=== PATIENT | male | born 1990 | race Caucasian/White ===

== ENCOUNTER 2020-06-24 13:22 | Emergency (ER) | payer BC, SELFPAY ==
--- NOTE | ~2020-06-24 | XR_ITS ---
EXAMINATION: XR ANKLE, RIGHT CLINICAL INFORMATION: Pain COMPARISON: None TECHNIQUE: AP, lateral, and mortise views of the right ankle. FINDINGS: The bones and soft tissues are normal. No fracture. Alignment is anatomic. Joint spaces are maintained. No joint effusion. XR/XR ankle RT min 3V IMPRESSION: Normal right ankle.
[2020-06-24 13:31] VITALS: BP 118/74; PULSE 95; RESP 18; TEMP 36.6; O2SAT 97; BMI 23.6
--- NOTE | 2020-06-24 16:17 | ED_ITS ---
HPI - Extremity Injury (Lower) General Chief Complaint: Extremity Injury, Lower Stated Complaint: rt ankle inj Time Seen by Provider: 06/24/20 14:43 Source: patient Mode of arrival: ambulatory Limitations: no limitations History of Present Illness HPI Narrative: 30-year-old male presenting to the ED after he reports he he jumped from a window and since then has been having pain to the right ankle a few days ago worse today. Denies any other injuries complaints or concerns at this time. MD complaint: ankle injury Onset (ago): day(s) (Few days ago worse today) Type of Injury: blunt Place: home Severity: moderate Relieving factors: nothing Exacerbating factors: weight bearing, movement and palpation Context: jumping Associated symptoms: swelling and unable to bear weight Other symptoms: none Related Data Previous Rx's Medication Instructions Recorded acetaminophen [Tylenol Extra 1,000 mg PO QID PRN #14 tab 06/24/20 Strength] ibuprofen 800 mg PO Q8H PRN #14 tab 06/24/20 oxycodone 5 mg PO BID PRN #10 tab 06/24/20 Allergies Allergy/AdvReac Type Severity Reaction Status Date / Time Sulfa (Sulfonamide Allergy Unknown rash Unverified 04/15/19 00:00 Antibiotics) sulfamethoxazole Allergy Unknown UNKNOWN Unverified 01/09/20 17:17 [From BACTRIM] trimethoprim [From BACTRIM] Allergy Unknown UNKNOWN Unverified 01/09/20 17:17 [email or web address] Allergy Unknown throat Uncoded 04/15/19 00:00 swelling BuSpar AdvReac Unknown RLS Uncoded 04/15/19 00:00 Review of Systems Review of Systems: Constitutional : No changes in activity, No lethargy, No recent prior head injury, No agitation, No increased fussiness ENT/Mouth : No Ear Pain, No Nasal discharge/drainage Eyes: No Eye Pain, No Swelling, No Redness, No Foreign Body, No Vision Changes Cardiovascular : No Chest Pain, No SOB Respiratory : No Cough Gastrointestinal : No Nausea, No Vomiting, No abdominal Pain Genitourinary : No Dysuria, No Urinary Frequency, No Urinary Incontinence, No Urgency, No Flank Pain Musculoskeletal : + joint pain, No neck stiffness, No back pain/injury Skin : No lacerations Neuro : No unsteady gait, No Paresthesias, No Loss of Consciousness, No altered mental status, No Headache Yes all other systems are reviewed and are negative [facility] Past Medical History Attestation statement: The following information was validated with the patient. Social History Social History Advance Directives: No Advance Directives Information Provided: Yes Physical Exam Vital Signs: Vital Signs: Last Vital Signs Temp 97.9 F 06/24/20 13:31 Pulse 95 06/24/20 13:31 Resp 18 06/24/20 13:31 BP 118/74 06/24/20 13:31 Pulse Ox 97 06/24/20 13:31 Body Mass Index 23.6 Vital signs have been reviewed as normal and appeared to be correct. Blood pressure normal. Heart rate normal. Respiration rate normal. Temperature normal. Oxygen saturation normal. Appearance: Alert. Oriented. Actively playing. No acute distress. Head: Normal external exam. Normocephalic. Atraumatic. Eyes: PERRLA. EOMI. No nystagmus noted. Conjunctiva and sclera normal. Eyelids normal. Corneal reflex normal. ENT: Hearing normal. Pharynx normal. Uvula midline. tongue midline. Moist mucous membranes. Neck: Normal inspection. Neck supple. FROM. Nontender. CVS: Normal heart rate and rhythm. Heart sound normal. Pulses normal throughout. Respiratory: No respiratory distress. Painless inspiration. Breath sounds normal. No wheezes/rales/rhonchi noted. Chest nontender. Back: No tenderness noted. Full range of motion noted. Skin: Skin warm and dry. Normal skin color. Normal skin turgor. No rashes/lesions/lacerations noted. Extremities: Patient moderate soft tissue swelling to right ankle at the medial and lateral aspect along with anterior aspect. No laxity noted. Achilles tendon is intact. Negative Peña test. No obvious deformities noted. Although patient appears to walk with a slight limp to the right leg. Otherwise all other Extremities exhibit normal range of motion and nontender. Neuro: Oriented X 3. No motor deficit. No sensory deficit. Reflexes normal. Moving all extremities. No focal motor deficits. Speech normal. Limping gait due to pain. Strength 5/5 throughout. Muscle tone normal throughout. Course Course Course Narrative: 30-year-old male with injury to right ankle after he jumped off the 2nd floor a few days ago with persistent pain to right ankle and soft tissue swelling at the medial and lateral aspect. No obvious deformities noted. No laxity noted. Patient has a limping gait. X-ray obtained and revealed soft tissue swelling otherwise no acute processes noted. Will place the patient in an Aircast provide crutches and give symptomatic treatment along with instructions follow-up with orthopedics in 1-2 weeks and to return if any new or worsening symptoms. Patient understands agrees the plan. Procedures Orthopedic Splinting/Casting Injury #1: Side: right Lower Extremity Injury Location: ankle Lower Extremity Immobilizer: AirCast Other Orthopedic Equipment: crutches MDM - Extremity Injury (Lower) Medical Records Attestation: I reviewed the patient's medical records. Imaging Data Right ankle x-ray: Attestation: I personally reviewed and interpreted this imaging study as follows: Radiologist's impression: FINDINGS: The bones and soft tissues are normal. No fracture. Alignment is anatomic. Joint spaces are maintained. No joint effusion. XR/XR ankle RT min 3V IMPRESSION: Normal right ankle. Discharge Plan Discharge Clinical Impression: Ankle sprain and strain Patient Disposition: Home, Self-Care Instructions: Ankle Sprain (ED), Crutch Instructions (ED) Prescriptions: New acetaminophen [Tylenol Extra Strength] 500 mg tablet 1,000 mg PO QID PRN (Reason: fever or pain) Qty: 14 RF: 0 oxycodone 5 mg tablet 5 mg PO BID PRN (Reason: pain) Qty: 10 RF: 0 ibuprofen 800 mg tablet 800 mg PO Q8H PRN (Reason: pain) Qty: 14 RF: 0 Referrals: Martha Ortiz MD [Physician] - 1 week (Call within 1-2 weeks for a follow-up appointment within 1-2 weeks) Stand Alone Forms: Work/School Release Print Language: Icelandic
[2020-06-24] MEDS: oxyCODONE HCl Immed Release 5 MG TABLET PO (16:43)
[2020-06-24] MEDS: Ibuprofen 800 MG TABLET PO (16:43)
== END 2020-06-24 16:53 | disposition home or self-care (01) ==
PROVIDERS: Emergency Provider Emergency Medicine; PCP Nurse Practitioner Family
DX: S93.401A Sprain of unspecified ligament of right ankle, initial encounter (principal); S96.911A Strain of unspecified muscle and tendon at ankle and foot level, right foot, initial encounter; W13.4XXA Fall from, out of or through window, initial encounter; Y93.89 Activity, other specified; Y92.019 Unspecified place in single-family (private) house as the place of occurrence of the external cause; Y99.9 Unspecified external cause status
CPT/HCPCS: 73610; 99283

== ENCOUNTER 2020-07-13 14:16 | Outpatient (REF) | payer BC, SELFPAY ==
--- NOTE | ~2020-07-13 | XR_ITS ---
EXAMINATION: XR ANKLE, RIGHT CLINICAL INFORMATION: Pain COMPARISON: Previous x-ray 06/24/2020 TECHNIQUE: AP, lateral, and mortise views of the right ankle. FINDINGS: Bone alignment is normal. No fracture or dislocation is seen. The ankle mortise is normal. There is question of a subchondral lucency in the lateral dome of the talus measuring 3 x 5 mm. There may be a ankle joint effusion. Soft tissues are otherwise normal. XR/XR ankle RT min 3V IMPRESSION: Question subchondral lucency in the lateral dome of the talus and ankle joint effusion.
== END 2020-07-13 14:17 | disposition home or self-care (01) ==
LOC: HO.HOSX 14:16
PROVIDERS: PCP Nurse Practitioner Family; Visit Provider Physician Assistant
DX: S82.891A Other fracture of right lower leg, initial encounter for closed fracture (principal); X58.XXXA Exposure to other specified factors, initial encounter; Y93.9 Activity, unspecified; Y92.9 Unspecified place or not applicable; Y99.9 Unspecified external cause status
CPT/HCPCS: 73610

== ENCOUNTER 2021-03-24 23:49 | Emergency (ER) | payer OTHER, BC, SELFPAY ==
--- NOTE | ~2021-03-24 | XR_ITS ---
EXAMINATION: XR ANKLE, RIGHT CLINICAL INFORMATION: Ankle pain COMPARISON: None TECHNIQUE: AP, lateral, and mortise views of the right ankle. FINDINGS: The bones and soft tissues are normal aside from the presence of subchondral lucency in the lateral dome of the talus this measures about 6 x 5 mm and appears larger than on the prior study. Alignment is anatomic. Joint spaces are maintained. No joint effusion. XR/XR ankle RT 2V IMPRESSION: Talar dome osteochondral defect. MRI could be performed for further evaluation given continued pain.
[2021-03-24 23:54] VITALS: BP 128/89; PULSE 81; RESP 18; TEMP 36.6; O2SAT 97; BMI 22.1
--- NOTE | 2021-03-25 01:15 | ED_ITS ---
HPI - Extremity Injury (Lower) General Chief Complaint: Extremity Injury, Lower Stated Complaint: right ankle inj @ work Time Seen by Provider: 03/25/21 00:41 Source: patient Mode of arrival: ambulatory Limitations: no limitations History of Present Illness HPI Narrative: Patient presents to ED for recurrent ankle sprain. Patient states at work wearing heavy boots he turned his ankle. Patient states occurred yesterday. Patient denies falling to the ground or any other trauma complaints. Related Data Previous Rx's Medication Instructions Recorded acetaminophen 500 mg tablet 1,000 mg PO QID PRN #14 tab 06/24/20 (Tylenol Extra Strength) ibuprofen 800 mg tablet 800 mg PO Q8H PRN #14 tab 06/24/20 oxycodone 5 mg tablet 5 mg PO BID PRN #10 tab 06/24/20 naproxen 500 mg tablet 500 mg PO BID PRN #20 tab 03/25/21 Allergies Allergy/AdvReac Type Severity Reaction Status Date / Time Sulfa (Sulfonamide Allergy Unknown rash Verified 07/13/20 14:21 Antibiotics) sulfamethoxazole Allergy Unknown UNKNOWN Verified 07/13/20 14:21 [From BACTRIM] trimethoprim [From BACTRIM] Allergy Unknown UNKNOWN Verified 07/13/20 14:21 [email or web address] Allergy Unknown throat Uncoded 04/15/19 00:00 swelling BuSpar AdvReac Unknown RLS Uncoded 04/15/19 00:00 Review of Systems Review of Systems: Yes all other systems are reviewed and are negative Constitutional: Constitutional: Reports as per HPI and Reports no additional constitutional complaints Eyes: Eyes: Reports as per HPI and Reports no additional eye complaints ENT: Reports system reviewed and no additional complaints, except as doc umented and Reports as per HPI Cardiovascular: Cardiovascular: Reports as per HPI and Reports no additional cardiovascular complaints Respiratory: Respiratory: Reports as per HPI and Reports no additional respiratory complaints Gastrointestinal: Gastrointestinal: Reports as per HPI and Reports no additional gastrointestinal complaints Genitourinary: Genitourinary: Reports no additional male genitourinary complaints and Reports as per HPI Musculoskeletal: Musculoskeletal: Reports no additional musculoskeletal complaints, Reports as per HPI and Reports arthralgias (right ankle pain) Neurologic: Reports system reviewed and no additional complaints, except as documented and Reports as per HPI Psychiatric: Psychiatric: Reports no additional psychiatric complaints and Reports as per HPI [facility] Social History Social History (Updated 07/13/20 @ 14:29 by RAMONITA De Leon Substance Use Type: Marijuana Advance Directives: No Current occupational status: employed Current occupation: Hvac - Right Handed Physical Exam Vital Signs: Vital Signs: Last Vital Signs Temp 97.8 F 03/24/21 23:54 Pulse 81 03/24/21 23:54 Resp 18 03/24/21 23:54 BP 128/89 03/24/21 23:54 Pulse Ox 97 03/24/21 23:54 BMI result Body Mass Index 22.1 Const: General: cooperative, healthy appearing, comfortable, no acute distress , well developed, alert, awake and Physically active Orientation/consciousness: patient oriented x3 HENMT: Head: Yes normal to inspection, Yes No palpable skull fracture present, Yes normocephalic and Yes atraumatic Eyes: General: appearance normal, both eyes and all related structures Neck: Neck: Yes normal visual inspection, Yes full ROM, Yes no lymphadenopathy, Yes no meningeal signs, Yes trachea midline, Yes supple, No anterior neck swelling and No tender Chest: Chest palpation & inspection: normal inspection of the chest and normal palpation of entire chest wall Resp: Effort & Inspection: normal respiratory effort and able to speak in complete sentences Auscultation: clear to auscultation bilaterally Cardio: Jugular venous distension: no JVD Heart sounds: S1 normal heart sound present and S2 normal heart sound present GI: Inspection: Yes normal to inspection and No abdominal wall ecchymosis Palpation (GI): Soft to palpation, not firm, nontender, no guarding and not rigid : General: No CVA tenderness and Yes no CVA tenderness Back/Spine/Pelvis: Back: no CVA tenderness, No CVA tenderness and No back tenderness Skin: General skin exam: no rashes or lesions noted and elasticity normal Neuro: General: patient oriented x3, gait normal and no meningeal signs Cranial nerves: Yes CN's II-XII intact bilaterally Extrem: General: Yes normal to inspection and Yes full ROM Ankle/foot/toe images: 1. Positive for tenderness on palpation. Negative for any ecchymosis, deformity, crepitus, erythema, pus discharge, foul odor, or bluish black discoloration. Motor/neuro/vascular exam intact Psych: Appearance: grossly normal, well kempt and not disheveled Course Course Course Narrative: X-ray Reevaluation(s) Reevaluation #1: X-ray negative for any fracture but does shows lucency in talus bone. Patient given copy of x-ray report told to follow up with primary care provider for MRI for unusual lucency on talus bone. MDM - Extremity Injury (Lower) MDM Narrative Medical decision making narrative: Ankle sprain Discharge Plan Discharge Clinical Impression: Ankle sprain and strain Patient Disposition: Home, Self-Care Instructions: Ankle Sprain (ED) Additional Instructions: You are given copy of x-ray report. Please follow-up with primary care provider and were connection. Return to the ED immediately for swelling, redness, bluish black discoloration, coolness, calf pain, fever, chills, pus discharge, foul odor, red streaks, or any other concerning symptoms. Prescriptions: New naproxen 500 mg tablet 500 mg PO BID PRN (Reason: pain) Qty: 20 RF: 0 No Action acetaminophen [Tylenol Extra Strength] 500 mg tablet 1,000 mg PO QID PRN (Reason: fever or pain) Qty: 14 RF: 0 oxycodone 5 mg tablet 5 mg PO BID PRN (Reason: pain) Qty: 10 RF: 0 ibuprofen 800 mg tablet 800 mg PO Q8H PRN (Reason: pain) Qty: 14 RF: 0 Referrals: [facility] [Provider Group] - 2 days (Ankle sprain.) Stand Alone Forms: Work/School Release Interventions: ED Discharge Assessment Last Done: 03/25/21 01:27 Discharge Date/Time: 03/25/21 01:29 Print Language: [place]
== END 2021-03-25 01:29 | disposition home or self-care (01) ==
PROVIDERS: Emergency Provider Emergency Medicine; PCP Nurse Practitioner Family
DX: S93.401A Sprain of unspecified ligament of right ankle, initial encounter (principal); X50.1XXA Overexertion from prolonged static or awkward postures, initial encounter; Y93.89 Activity, other specified; Y92.9 Unspecified place or not applicable; Y99.0 Civilian activity done for income or pay; S96.911A Strain of unspecified muscle and tendon at ankle and foot level, right foot, initial encounter
CPT/HCPCS: 73600; 99283

== ENCOUNTER → 2021-04-19 09:00 | Outpatient (BNVA) | payer OTHER, BC, SELFPAY | PROVIDERS: PCP Nurse Practitioner Family; Visit Provider Physician Assistant | DX: M95.8 Other specified acquired deformities of musculoskeletal system (principal) | CPT/HCPCS: 99212 ==

== ENCOUNTER 2025-02-05 11:06 | Outpatient (AMB) | payer OTHER, SELFPAY ==
[2025-02-05 11:19] VITALS: BP 104/80; PULSE 79; TEMP 36.8; O2SAT 97; BMI 29.3
--- NOTE | 2025-02-05 11:19 | MHC.OFFWIV ---
Intake Vital Signs 02/05/25 11:19 Height 5 ft Weight 150 lb BMI 29.3 BP 104/80 Blood Pressure Location Lt brachial Position Sitting Pulse 79 Pulse Source Pulse Oximeter Temp 98.2 F Temp Source Oral Pulse Oximetry (%) 97 Oxygen Delivery Method Room Air Intake Visit Reasons: EP-upper back pain, lt arm & hand numbness-WC Intake Note: DOI 01/26/2025 Allergies Sulfa (Sulfonamide Antibiotics) Allergy (Unknown, Verified 02/05/25 11:19) rash sulfamethoxazole (From BACTRIM) Allergy (Unknown, Verified 02/05/25 11:19) UNKNOWN trimethoprim (From BACTRIM) Allergy (Unknown, Verified 02/05/25 11:19) UNKNOWN cashews Allergy (Unknown, Uncoded 04/15/19 00:00) throat swelling BuSpar Adverse Reaction (Unknown, Uncoded 04/15/19 00:00) RLS Do you need a note to return to daycare/school/sports/work: Yes HPI HPI Comments History of Present Illness Details History - The patient is a 34-year-old male presenting with back pain and numbness in the left arm and left hand following a recent lifting incident. Particularly in left 4th and 5th digits, running up to elbow and ending mid bicep - The patient experienced initial back pain the day after lifting a 32-foot ladder onto a vehicle, which exacerbated a pre-existing issue in the same area. - The patient reports intermittent back pain over the years, described as a pulled muscle, but this episode included numbness in the hand. - The numbness began eight days ago and has not worsened but remains noticeable, especially during physical exertion. he had an episode of weakness in the hand today which self resolved - The patient has tried Tylenol with minimal relief - The patient works in [employer] and experiences physical demands that may contribute to musculoskeletal strain. + Physical Exam General: cooperative, healthy appearing and comfortable, patient oriented x3 Head: Yes normal to inspection and Yes normocephalic General nose exam: Normal external nose present Face and sinus: Yes normal facial exam Effort & Inspection: normal respiratory effort and able to speak in complete sentences Back/spine: cervical, thoracic and lumbar spine normal to inspection cervical ROM normal, thoracic ROM normal, lumbar ROM normal no Cervical, thoracic or lumbar spine tenderness no TTP bilateral trapezius Extremities: moving all extremities normally, group manager strength 5/5 bilaterally, no skin changes, full ROM left shoulder, elbow wrist and hand, left hand NVI Review of Systems - Musculoskeletal: Reports back pain and numbness in the hand, denies shoulder or trapezius pain - Neurological: Reports tingling and weakness in the hand, denies significant neck pain All systems reviewed and are unremarkable except as noted in HPI [facility] Social History Substance Use Type: Marijuana Current occupational status: employed Current occupation: Hvac - Right Handed Physical Exam Vital Signs: Last Vital Signs Temp 98.2 F 02/05/25 11:19 Pulse 79 02/05/25 11:19 BP 104/80 02/05/25 11:19 Pulse Ox 97 02/05/25 11:19 Oxygen Delivery Method Room Air 02/05/25 11:19 BMI result Body Mass Index 29.3 Assessment & Plan Assessment & Plan (1) Radiculopathy affecting upper extremity: Code(s): M54.10 - Radiculopathy, site unspecified Plan: Plan - Recommend the use of Aleve (naproxen) 220 mg, two tablets every 12 hours for the next few days to reduce inflammation. - Consider icing the elbow to alleviate potential ulnar nerve entrapment. - If symptoms persist, consider a follow-up for potential steroid treatment. 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 - Offered a note for two days off work to allow for rest and recovery. Patient was informed and verbally consented to the use of an ambient scribe for clinic note documentation during this visit. Coding Level of Care Code Est Pt Level 3 (73693) Diagnoses Radiculopathy affecting upper extremity M54.10
== END 2025-02-05 11:52 | disposition home or self-care (01) ==
PROVIDERS: PCP Nurse Practitioner Family; Visit Provider Physician Assistant
DX: M54.10 Radiculopathy, site unspecified (principal)

== ENCOUNTER → 2025-02-05 11:06 | Outpatient (BNVA) | payer OTHER, SELFPAY | PROVIDERS: PCP Nurse Practitioner Family; Visit Provider Physician Assistant | DX: R20.0 Anesthesia of skin (principal); M54.10 Radiculopathy, site unspecified | CPT/HCPCS: 99212 ==